=== PATIENT | female | born 1975 | race Hispanic/Latino ===

== ENCOUNTER 2016-12-04 23:57 | Emergency (ER) | payer SELFPAY ==
[2016-12-05 06:31] LABS: Urine Drugs of Abuse Note Disclamer
[2016-12-05 06:50] LABS: Bilirubin,Urine NEG (Negative); Blood,Urine NEG (Negative); Ketones,Urine TR mg/dL (Negative); Leukocyte Esterase,Urine SM (Negative); Mucus,Urine 2+ /HPF; Nitrite,Urine NEG (Negative); Protein,Urine <15 mg/dL mg/dL (Negative); Urobilinogen,Urine < 2.0 mg/dL (<2.0)
[2016-12-05] MEDS ORDERED: VALIUM PO ONE (07:43)
[2016-12-05] MEDS ORDERED: NORCO 5/325 PO ONE (07:43)
[2016-12-05 07:54] VITALS: BP 115/80
--- NOTE | 2016-12-05 07:58 | Emergency Department Report ---
HPI - General Chief Complaint: Extremity Problem,Nontraumatic Time Seen by Provider: 12/05/16 07:31 - HPI HPI: 41-year-old female presents today with left upper back pain radiating to her left arm and lower back pain x 2.5 weeks. Denies injury or trauma. Positive for history of similar symptoms. Patient states she has history of a pinched nerve and she used to follow-up with Dr. Walden who had her on Percocet. Patient tried BenGay, Flexeril, Toradol, tramadol, Advil without relief. Denies numbness, weakness, paresthesias. Denies bowel or bladder incontinence. Denies fever, chills, nausea, vomiting, chest pain, shortness of breath, abdominal pain, urinary symptoms, vaginal discharge or bleeding. ED Past Medical Hx - Past Medical History Previous Medical History?: Yes Additional medical history: polysubstance abuse - Surgical History Past Surgical History?: No - Social History Smoking Status: Never Smoker Substance Use Type: Alcohol - Medications Home Medications: Home Medications Medication Instructions Recorded Confirmed Last Taken Type ALPRAZolam [Xanax TAB] 2 mg PO TID PRN 09/25/16 09/25/16 Unknown History Nitrofurantoin Cotton/M-Cryst 100 mg PO Q12HR #10 capsule 12/05/16 Unknown Rx [Macrobid CAP] ED Review of Systems ROS: Stated complaint: BACK/LEFT SHOULDER PAIN Other details as noted in HPI Constitutional: denies: chills, fever, malaise Eyes: denies: eye pain ENT: denies: ear pain, throat pain, congestion Respiratory: denies: cough, shortness of breath, wheezing Cardiovascular: denies: chest pain, palpitations Endocrine: no symptoms reported Gastrointestinal: denies: abdominal pain, nausea, vomiting Musculoskeletal: back pain Neurological: denies: headache, weakness, numbness, paresthesias Physical Exam - Physical Exam Vital Signs: Vital Signs 12/05/16 01:45 Temperature 97.7 F Pulse Rate 82 Respiratory 18 Rate Blood Pressure 118/81 O2 Sat by Pulse 100 Oximetry Physical Exam: GENERAL: The patient is well-developed and well-nourished. Patient is in NAD. HEAD: Normocephalic. Atraumatic. NECK: No midline or paraspinal tenderness to palpation. Full range of motion. BACK: Full ROM. No midline tenderness. Bilateral paraspinal tenderness of lumbar region. Tenderness to palpation over left trapezius muscle group. No tenderness to palpation of sciatic notch bilaterally. Negative straight leg raise bilaterally. CHEST/LUNGS: Clear to auscultation throughout. HEART/CARDIOVASCULAR: Regular rate and rhythm. No murmurs, rubs or gallops. ABDOMEN: Abdomen is soft, nontender. No guarding or rebound tenderness. Negative for CVA tenderness bilaterally. EXTREMITIES: Full range of motion. Peripheral pulses intact. Capillary refill less than 2 seconds. NEURO: Alert and oriented x 3. Normal gait. ED Course Vital Signs 12/05/16 01:45 Temperature 97.7 F Pulse Rate 82 Respiratory 18 Rate Blood Pressure 118/81 O2 Sat by Pulse 100 Oximetry ED Medical Decision Making - Lab Data Vital Signs 12/05/16 12/05/16 01:45 07:53 Temperature 97.7 F Pulse Rate 82 69 Respiratory 18 20 Rate Blood Pressure 118/81 Blood Pressure 115/80 [Right] O2 Sat by Pulse 100 97 Oximetry Lab Results 12/05/16 12/05/16 Range/Units 06:22 06:22 Urine Color Yellow (Yellow) Urine Turbidity Clear (Clear) Urine pH 6.0 (5.0-7.0) Ur Specific Witt 1.024 (1.003-1.030) Urine Protein <15 mg/dl (Negative) mg/dL Urine Glucose (UA) Neg (Negative) mg/dL Urine Ketones Tr (Negative) mg/dL Urine Blood Neg (Negative) Urine Nitrite Neg (Negative) Urine Bilirubin Neg (Negative) Urine Urobilinogen < 2.0 (<2.0) mg/dL Ur Leukocyte Esterase Sm (Negative) Urine WBC (Auto) 17.0 H (0.0-6.0) /HPF Urine RBC (Auto) 7.0 (0.0-6.0) /HPF U Epithel Cells (Auto) 3.0 (0-13.0) /HPF Urine Mucus 2+ /HPF Urine Opiates Screen Presumptive negative Urine Methadone Screen Presumptive negative Ur Barbiturates Screen Presumptive negative Ur Phencyclidine Scrn Presumptive negative Ur Amphetamines Screen Presumptive negative U Benzodiazepines Scrn Presumptive positive Urine Cocaine Screen Presumptive negative U Marijuana (THC) Screen Presumptive positive Drugs of Abuse Note Disclamer - Medical Decision Making 41-year-old female presents today with acute onset of chronic upper and lower back pain 2.5 weeks. Her urinalysis reveals small leukocyte esterase. Patient was given Valium and [place] and reported symptomatic relief. Explained to patient that this is a chronic condition and she needs to follow up with orthopedics or her pain management. Patient expressed understanding. Patient is in no acute distress at this time. She will be discharged home and is encouraged to follow up with a primary care provider. Will be sent home on Macrobid and is encouraged to return to the emergency room for any worsening symptoms. Critical care attestation.: If time is entered above; I have spent that time in minutes in the direct care of this critically ill patient, excluding procedure time. ED Disposition Clinical Impression: Chronic back pain Qualifiers: Back pain location: low back pain Back pain laterality: bilateral Sciatica presence: without sciatica Qualified Code(s): M54.5 - Low back pain; G89.29 - Other chronic pain UTI (urinary tract infection) Qualifiers: Urinary tract infection type: acute cystitis Hematuria presence: without hematuria Qualified Code(s): N30.00 - Acute cystitis without hematuria Upper back strain Qualifiers: Encounter type: initial encounter Qualified Code(s): S29.012A - Strain of muscle and tendon of back wall of thorax, initial encounter Disposition: DISCHARGED TO HOME OR SELFCARE Is pt being admited?: No Does the pt Need Aspirin: No Condition: Undetermined Instructions: Muscle Strain (ED), Chronic Back Pain (ED), Urinary Tract Infection in Women (ED) Additional Instructions: Follow-up with orthopedic or pain management. Return to emergency department if symptoms worsen. Prescriptions: Nitrofurantoin Cotton/M-Cryst [Macrobid CAP] 100 mg PO Q12HR #10 capsule Referrals: [facility] [Provider Group] - 3-5 Days PRIMARY CAREMD [Primary Care Provider] - 3-5 Days ANDI RIOS MD [Staff Physician] - 3-5 Days [facility] [Outside] - 3-5 Days Forms: Work/School Release Form(ED), Accompanied Note Time of Disposition: 08:02
== END 2016-12-05 08:14 | disposition home or self-care (01) ==
LOC: ED 23:57
DX: S29.012A Strain of muscle and tendon of back wall of thorax, initial encounter (principal); M54.5 Low back pain; G89.29 Other chronic pain; N30.00 Acute cystitis without hematuria; X58.XXXA Exposure to other specified factors, initial encounter; Y93.89 Activity, other specified; Y99.9 Unspecified external cause status; Y92.89 Other specified places as the place of occurrence of the external cause
CPT/HCPCS: 80307; 81001; 99283

== ENCOUNTER 2017-02-01 04:48 | Emergency (ER) | payer SELFPAY ==
[2017-02-01 05:45] VITALS: BP 121/76
[2017-02-01] MEDS ORDERED: ZOFRAN ODT PO ONE (07:38)
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
== END 2017-02-01 08:00 | disposition left against medical advice (07) ==
LOC: ED 04:48
DX: M54.6 Pain in thoracic spine (principal); R11.0 Nausea
CPT/HCPCS: 99282; Q0162

== ENCOUNTER 2017-02-27 15:29 | Emergency (ER) | payer SELFPAY ==
[2017-02-27] MEDS ORDERED: ZOFRAN ONE (15:35)
[2017-02-27] MEDS ORDERED: NARCAN 0.4 MG/1 ML ONE (15:35)
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
[2017-02-27] MEDS ORDERED: NARCAN 0.4 MG/1 ML IV ONE (15:44)
--- NOTE | 2017-02-27 16:11 | Emergency Department Report ---
History of Present Illness - General Chief Complaint: Overdose Stated Complaint: OVERDOSE Time Seen by Provider: 02/27/17 15:43 Source: family Mode of arrival: Stretcher Limitations: Altered Mental Status - History of Present Illness Initial Comments: 41-year-old female with a past medical history polysubstance abuse including heroin presents to the hospital with potential heroin overdose. Patient is brought in by private vehicle by her boyfriend thinks she did overdose on heroin. Patient was found sitting up in a trunk and unconscious. Patient does wake up to intermittently answer questions but is drowsy and quickly falls back to sleep. No pain reported. Patient received Narcan 0.4 mg in the ED and admitted became more responsive, able to ambulate, respiratory rate improved. - Related Data Home Medications Medication Instructions Recorded Confirmed Last Taken No Known Home Medications [No 02/27/17 02/27/17 Unknown Reported Home Medications] Allergies Allergy/AdvReac Type Severity Reaction Status Date / Time codeine Allergy Rash Verified 12/05/16 01:56 cyclobenzaprine HCl Allergy Rash Verified 12/05/16 01:56 [From Flexeril] ketorolac tromethamine Allergy Rash Verified 12/05/16 01:56 [From Toradol] ED Review of Systems ROS: Stated complaint: OVERDOSE Other details as noted in HPI Comment: All other systems reviewed and negative Other: Obtained after patient received Narcan 0.4 mg and became more alert Constitutional: No fevers chills Eyes: No eye pain visual changes Neck: Denies pain Respiratory: Denies cough wheezing shortness of breath Cardiovascular: Denies chest pain, palpitations, syncope GI: Denies abdominal pain, nausea, vomiting, diarrhea : Denies dysuria Musculoskeletal: Complains of back pain Skin: Denies rash, lesions, erythema Neurologic: Denies headache, numbness, weakness Psychiatric: Denies suicidal ideation, hallucinations ED Past Medical Hx - Past Medical History Previous Medical History?: Yes Additional medical history: polysubstance abuse - Surgical History Past Surgical History?: Yes - Social History Smoking Status: Current Every Day Smoker Substance Use Type: Alcohol, Heroin, Marijuana - Medications Home Medications: Home Medications Medication Instructions Recorded Confirmed Last Taken Type No Known Home Medications [No 02/27/17 02/27/17 Unknown History Reported Home Medications] ED Physical Exam - General Limitations: Altered Mental Status - Other Other exam information: General: No limitations, patient is alert in no acute distress Head exam: Atraumatic, normocephalic Eyes exam: Normal appearance ENT: Moist mucous membrane, normal oropharynx Neck exam: Normal inspection, full range of motion Respiratory exam: Clear to auscultation bilateral, no wheezes, rales, crackles Cardiovascular: Normal rate and rhythm, normal heart sounds Abdomen: Soft, nondistended, and nontender, with normal bowel sounds, no rebound, or guarding Extremity: Full range of motion normal inspection no deformity Back: Normal Inspection, full range of motion, no tenderness Neurologic: Lethargic but arousable to tactile stimulation, slurred slow speech. After Narcan patient is alert and oriented 3, no motor or sensory deficit, gait steady, speech clear, cranial nerves grossly intact with no facial droop. Psychiatric: normal affect, normal mood Skin: Tract stock noted to hand ED Course Vital Signs 02/27/17 02/27/17 15:35 18:58 Temperature 96.0 F L Pulse Rate 104 H 89 Respiratory 8 L 16 Rate Blood Pressure 114/67 Blood Pressure 135/63 [Right] O2 Sat by Pulse 98 100 Oximetry - Reevaluation(s) Reevaluation #1: 02/27/17 16:11 Narcan 0.4 mg given after my evaluation with improvement in mental status and respiratory rate ED Medical Decision Making - Lab Data Result diagrams: 02/27/17 17:40 02/27/17 17:40 Lab Results 02/27/17 02/27/17 02/27/17 Range/Units 16:05 16:05 17:40 WBC 11.2 H (4.5-11.0) K/mm3 RBC 4.11 (3.65-5.03) M/mm3 Hgb 12.1 (10.1-14.3) gm/dl Hct 36.7 (30.3-42.9) % MCV 89 (79-97) fl MCH 29 (28-32) pg MCHC 33 (30-34) % RDW 14.9 (13.2-15.2) % Plt Count 241 (140-440) K/mm3 Lymph % (Auto) 18.8 (13.4-35.0) % Lyman % (Auto) 7.8 H (0.0-7.3) % Eos % (Auto) 0.2 (0.0-4.3) % Baso % (Auto) 1.9 H (0.0-1.8) % Lymph # 2.1 (1.2-5.4) K/mm3 Lyman # 0.9 H (0.0-0.8) K/mm3 Eos # 0.0 (0.0-0.4) K/mm3 Baso # 0.2 H (0.0-0.1) K/mm3 Seg Neutrophils % 71.3 H (40.0-70.0) % Seg Neutrophils # 8.0 H (1.8-7.7) K/mm3 Sodium (137-145) mmol/L Potassium (3.6-5.0) mmol/L Chloride (98-107) mmol/L Carbon Dioxide (22-30) mmol/L Anion Gap mmol/L BUN (7-17) mg/dL Creatinine (0.7-1.2) mg/dL Estimated GFR ml/min BUN/Creatinine Ratio % Glucose (65-100) mg/dL Calcium (8.4-10.2) mg/dL Total Bilirubin (0.1-1.2) mg/dL Direct Bilirubin (0-0.2) mg/dL Indirect Bilirubin mg/dL AST (5-40) units/L ALT (7-56) units/L Alkaline Phosphatase (35-129) units/L Total Creatine Kinase (30-135) units/L Total Protein (6.3-8.2) g/dL Albumin (3.9-5) g/dL Albumin/Globulin Ratio % HCG, Qual (Negative) Urine Color Yellow (Yellow) Urine Turbidity Cloudy (Clear) Urine pH 5.0 (5.0-7.0) Ur Specific Chappell 1.014 (1.003-1.030) Urine Protein <15 mg/dl (Negative) mg/dL Urine Glucose (UA) Neg (Negative) mg/dL Urine Ketones Neg (Negative) mg/dL Urine Blood Neg (Negative) Urine Nitrite Neg (Negative) Urine Bilirubin Neg (Negative) Urine Urobilinogen < 2.0 (<2.0) mg/dL Ur Leukocyte Esterase Neg (Negative) Urine WBC (Auto) 2.0 (0.0-6.0) /HPF Urine RBC (Auto) 4.0 (0.0-6.0) /HPF U Epithel Cells (Auto) 13.0 (0-13.0) /HPF Urine Mucus Few /HPF Urine HCG, Qual Negative (Negative) Salicylates (2.8-20.0) mg/dL Urine Methadone Screen Presumptive negative Acetaminophen (10.0-30.0) ug/mL Ur Barbiturates Screen Presumptive negative Ur Phencyclidine Scrn Presumptive negative Ur Amphetamines Screen Presumptive negative Urine Cocaine Screen Presumptive negative Plasma/Serum Alcohol (0-0.07) gm% 02/27/17 02/27/17 02/27/17 Range/Units 17:40 17:40 17:40 WBC (4.5-11.0) K/mm3 RBC (3.65-5.03) M/mm3 Hgb (10.1-14.3) gm/dl Hct (30.3-42.9) % MCV (79-97) fl MCH (28-32) pg MCHC (30-34) % RDW (13.2-15.2) % Plt Count (140-440) K/mm3 Lymph % (Auto) (13.4-35.0) % Lyman % (Auto) (0.0-7.3) % Eos % (Auto) (0.0-4.3) % Baso % (Auto) (0.0-1.8) % Lymph # (1.2-5.4) K/mm3 Lyman # (0.0-0.8) K/mm3 Eos # (0.0-0.4) K/mm3 Baso # (0.0-0.1) K/mm3 Seg Neutrophils % (40.0-70.0) % Seg Neutrophils # (1.8-7.7) K/mm3 Sodium 136 L (137-145) mmol/L Potassium 4.1 (3.6-5.0) mmol/L Chloride 100.4 (98-107) mmol/L Carbon Dioxide 25 (22-30) mmol/L Anion Gap 15 mmol/L BUN 8 (7-17) mg/dL Creatinine 0.5 L (0.7-1.2) mg/dL Estimated GFR > 60 ml/min BUN/Creatinine Ratio 16.00 % Glucose 100 (65-100) mg/dL Calcium 8.5 (8.4-10.2) mg/dL Total Bilirubin (0.1-1.2) mg/dL Direct Bilirubin (0-0.2) mg/dL Indirect Bilirubin mg/dL AST (5-40) units/L ALT (7-56) units/L Alkaline Phosphatase (35-129) units/L Total Creatine Kinase (30-135) units/L Total Protein (6.3-8.2) g/dL Albumin (3.9-5) g/dL Albumin/Globulin Ratio % HCG, Qual (Negative) Urine Color (Yellow) Urine Turbidity (Clear) Urine pH (5.0-7.0) Ur Specific Chappell (1.003-1.030) Urine Protein (Negative) mg/dL Urine Glucose (UA) (Negative) mg/dL Urine Ketones (Negative) mg/dL Urine Blood (Negative) Urine Nitrite (Negative) Urine Bilirubin (Negative) Urine Urobilinogen (<2.0) mg/dL Ur Leukocyte Esterase (Negative) Urine WBC (Auto) (0.0-6.0) /HPF Urine RBC (Auto) (0.0-6.0) /HPF U Epithel Cells (Auto) (0-13.0) /HPF Urine Mucus /HPF Urine HCG, Qual (Negative) Salicylates < 0.3 L (2.8-20.0) mg/dL Urine Methadone Screen Acetaminophen < 15.0 (10.0-30.0) ug/mL Ur Barbiturates Screen Ur Phencyclidine Scrn Ur Amphetamines Screen Urine Cocaine Screen Plasma/Serum Alcohol (0-0.07) gm% 02/27/17 02/27/17 02/27/17 Range/Units 17:40 17:40 17:40 WBC (4.5-11.0) K/mm3 RBC (3.65-5.03) M/mm3 Hgb (10.1-14.3) gm/dl Hct (30.3-42.9) % MCV (79-97) fl MCH (28-32) pg MCHC (30-34) % RDW (13.2-15.2) % Plt Count (140-440) K/mm3 Lymph % (Auto) (13.4-35.0) % Lyman % (Auto) (0.0-7.3) % Eos % (Auto) (0.0-4.3) % Baso % (Auto) (0.0-1.8) % Lymph # (1.2-5.4) K/mm3 Lyman # (0.0-0.8) K/mm3 Eos # (0.0-0.4) K/mm3 Baso # (0.0-0.1) K/mm3 Seg Neutrophils % (40.0-70.0) % Seg Neutrophils # (1.8-7.7) K/mm3 Sodium (137-145) mmol/L Potassium (3.6-5.0) mmol/L Chloride (98-107) mmol/L Carbon Dioxide (22-30) mmol/L Anion Gap mmol/L BUN (7-17) mg/dL Creatinine (0.7-1.2) mg/dL Estimated GFR ml/min BUN/Creatinine Ratio % Glucose (65-100) mg/dL Calcium (8.4-10.2) mg/dL Total Bilirubin 0.2 (0.1-1.2) mg/dL Direct Bilirubin < 0.2 (0-0.2) mg/dL Indirect Bilirubin 0.0 mg/dL AST 22 (5-40) units/L ALT 19 (7-56) units/L Alkaline Phosphatase 74 (35-129) units/L Total Creatine Kinase (30-135) units/L Total Protein 6.6 (6.3-8.2) g/dL Albumin 3.5 L (3.9-5) g/dL Albumin/Globulin Ratio 1.1 % HCG, Qual Negative (Negative) Urine Color (Yellow) Urine Turbidity (Clear) Urine pH (5.0-7.0) Ur Specific Chappell (1.003-1.030) Urine Protein (Negative) mg/dL Urine Glucose (UA) (Negative) mg/dL Urine Ketones (Negative) mg/dL Urine Blood (Negative) Urine Nitrite (Negative) Urine Bilirubin (Negative) Urine Urobilinogen (<2.0) mg/dL Ur Leukocyte Esterase (Negative) Urine WBC (Auto) (0.0-6.0) /HPF Urine RBC (Auto) (0.0-6.0) /HPF U Epithel Cells (Auto) (0-13.0) /HPF Urine Mucus /HPF Urine HCG, Qual (Negative) Salicylates (2.8-20.0) mg/dL Urine Methadone Screen Acetaminophen (10.0-30.0) ug/mL Ur Barbiturates Screen Ur Phencyclidine Scrn Ur Amphetamines Screen Urine Cocaine Screen Plasma/Serum Alcohol < 0.01 (0-0.07) gm% 02/27/17 Range/Units 17:40 WBC (4.5-11.0) K/mm3 RBC (3.65-5.03) M/mm3 Hgb (10.1-14.3) gm/dl Hct (30.3-42.9) % MCV (79-97) fl MCH (28-32) pg MCHC (30-34) % RDW (13.2-15.2) % Plt Count (140-440) K/mm3 Lymph % (Auto) (13.4-35.0) % Lyman % (Auto) (0.0-7.3) % Eos % (Auto) (0.0-4.3) % Baso % (Auto) (0.0-1.8) % Lymph # (1.2-5.4) K/mm3 Lyman # (0.0-0.8) K/mm3 Eos # (0.0-0.4) K/mm3 Baso # (0.0-0.1) K/mm3 Seg Neutrophils % (40.0-70.0) % Seg Neutrophils # (1.8-7.7) K/mm3 Sodium (137-145) mmol/L Potassium (3.6-5.0) mmol/L Chloride (98-107) mmol/L Carbon Dioxide (22-30) mmol/L Anion Gap mmol/L BUN (7-17) mg/dL Creatinine (0.7-1.2) mg/dL Estimated GFR ml/min BUN/Creatinine Ratio % Glucose (65-100) mg/dL Calcium (8.4-10.2) mg/dL Total Bilirubin (0.1-1.2) mg/dL Direct Bilirubin (0-0.2) mg/dL Indirect Bilirubin mg/dL AST (5-40) units/L ALT (7-56) units/L Alkaline Phosphatase (35-129) units/L Total Creatine Kinase 85 (30-135) units/L Total Protein (6.3-8.2) g/dL Albumin (3.9-5) g/dL Albumin/Globulin Ratio % HCG, Qual (Negative) Urine Color (Yellow) Urine Turbidity (Clear) Urine pH (5.0-7.0) Ur Specific Chappell (1.003-1.030) Urine Protein (Negative) mg/dL Urine Glucose (UA) (Negative) mg/dL Urine Ketones (Negative) mg/dL Urine Blood (Negative) Urine Nitrite (Negative) Urine Bilirubin (Negative) Urine Urobilinogen (<2.0) mg/dL Ur Leukocyte Esterase (Negative) Urine WBC (Auto) (0.0-6.0) /HPF Urine RBC (Auto) (0.0-6.0) /HPF U Epithel Cells (Auto) (0-13.0) /HPF Urine Mucus /HPF Urine HCG, Qual (Negative) Salicylates (2.8-20.0) mg/dL Urine Methadone Screen Acetaminophen (10.0-30.0) ug/mL Ur Barbiturates Screen Ur Phencyclidine Scrn Ur Amphetamines Screen Urine Cocaine Screen Plasma/Serum Alcohol (0-0.07) gm% - Medical Decision Making pt is up and ready to go. she is accidental narcotic overdose with chronic use/ abuse issues. EKG was not obtained as originally ordered but at this time since patient is alert and awake and wanting to go it was not done. Patient does not want any further studies at this time. Repeat vital signs shows improvement. Patient has been alert for several hours after Narcan. Patient is requesting pain medication for her chronic back pain. She was told she would not be receiving pain medication here or additional discharge narcotics given recent overdose. She will be discharged home. vs improve. Pt did not want to wait for d/c paper work. Boyfriend in ed to take her home - Differential Diagnosis accidental overdose, suicidal ideation, drug abuse Critical Care Time: No Critical care attestation.: If time is entered above; I have spent that time in minutes in the direct care of this critically ill patient, excluding procedure time. ED Disposition Clinical Impression: Narcotic overdose, Chronic pain Disposition: DISCHARGED TO HOME OR SELFCARE Is pt being admited?: No Does the pt Need Aspirin: No Condition: Stable Instructions: Chronic Pain (ED), Narcotic Abuse (ED) Additional Instructions: Only taking your medication as prescribed. DO NOT TAKE EXTRA PAIN PILL OR USE HEROIN OR OTHER DRUGS. With the primary care doctor in the clinic provided. Return if symptoms worsen. Referrals: PRIMARY [facility] [Primary Care Provider] - 3-5 Days [facility] [Outside] - 3-5 Days [facility] [Other] - 3-5 Days [facility] [Provider Group] - 3-5 Days Time of Disposition: 18:51 (pt decline d/c paperwork)
[2017-02-27] MEDS ORDERED: ZOFRAN IV ONE (16:46)
[2017-02-27 17:29] LABS: Bilirubin,Urine NEG (Negative); Blood,Urine NEG (Negative); Ketones,Urine NEG (Negative); Leukocyte Esterase,Urine NEG (Negative); Mucus,Urine FEW /HPF; Nitrite,Urine NEG (Negative); Protein,Urine <15 mg/dL mg/dL (Negative); Urobilinogen,Urine < 2.0 mg/dL (<2.0)
[2017-02-27 17:53] LABS: Basophils % (Auto) 1.9 % (0.0-1.8); Eosinophils % (Auto) 0.2 % (0.0-4.3); Hematocrit 36.7 % (30.3-42.9); Hemoglobin 12.1 gm/dl (10.1-14.3); Mean Corpuscular HGB Conc 33 % (30-34); Mean Corpuscular Hemoglobin 29 pg (28-32); Mean Corpuscular Volume 89 fl (79-97); Platelet Count 241 K/mm3 (140-440); Red Blood Count 4.11 M/mm3 (3.65-5.03); Red Cell Distribution Width 14.9 % (13.2-15.2); White Blood Count 11.2 K/mm3 (4.5-11.0)
[2017-02-27 18:07] LABS: Anion Gap 15 mmol/L; Blood Urea Nitrogen 8 mg/dL (7-17); Calcium 8.5 mg/dL (8.4-10.2); Carbon Dioxide 25 mmol/L (22-30); Chloride 100.4 mmol/L (98-107); Glucose 100 mg/dL (65-100); Potassium 4.1 mmol/L (3.6-5.0); Sodium 136 mmol/L (137-145)
[2017-02-27 18:17] LABS: Alanine Aminotransferase 19 units/L (7-56); Albumin 3.5 g/dL (3.9-5); Albumin/Globulin Ratio 1.1 %; Alkaline Phosphatase 74 units/L (35-129); Bilirubin,Total 0.2 mg/dL (0.1-1.2); Total Protein 6.6 g/dL (6.3-8.2)
[2017-02-27 18:24] LABS: Urine Drugs of Abuse Note Disclamer
[2017-02-27 18:28] LABS: Bilirubin,Direct < 0.2 mg/dL (0-0.2)
[2017-02-27 18:59] VITALS: BP 135/63
--- NOTE | 2017-02-28 10:41 | XRay Report ---
CHEST ONE VIEW INDICATION: Overdose. COMPARISON: None similar at this institution. FINDINGS: Portable, single, frontal chest radiograph demonstrates normal cardiomediastinal silhouette. Clear lungs. Intact bones. CONCLUSION: No acute disease in the chest. Thank you for the opportunity to participate in this patient's care.
== END 2017-02-27 19:21 | disposition home or self-care (01) ==
LOC: ED 15:29
DX: T40.601A Poisoning by unspecified narcotics, accidental (unintentional), initial encounter (principal); G89.29 Other chronic pain; F17.200 Nicotine dependence, unspecified, uncomplicated; F12.10 Cannabis abuse, uncomplicated; F11.10 Opioid abuse, uncomplicated; Z88.5 Allergy status to narcotic agent; Z88.8 Allergy status to other drugs, medicaments and biological substances; Y92.89 Other specified places as the place of occurrence of the external cause
CPT/HCPCS: 36415; 71010; 80048; 80074; 80307; 81001; 81025; 82550; 84703; 85025; 96374; 96375; 99284; G0480; J2310; J2405; 80320

== ENCOUNTER 2017-04-04 22:27 | Emergency (ER) | payer SELFPAY ==
[2017-04-04 23:42] VITALS: BP 123/83
--- NOTE | 2017-04-05 08:40 | XRay Report ---
Left humerus: Evaluation for foreign body. Routine imaging demonstrates 2 segments of a metallic needle by approximately 2.8 cm in the lateral soft tissues adjacent to the proximal shaft. The remaining soft tissue and bony findings are unremarkable. Impression: Foreign body.
== END 2017-04-04 23:55 | disposition left against medical advice (07) ==
LOC: ED 22:27
DX: S49.82XA Other specified injuries of left shoulder and upper arm, initial encounter (principal); X58.XXXA Exposure to other specified factors, initial encounter; Y93.89 Activity, other specified; Y99.8 Other external cause status; Y92.89 Other specified places as the place of occurrence of the external cause; Z53.21 Procedure and treatment not carried out due to patient leaving prior to being seen by health care provider
CPT/HCPCS: 82962

== ENCOUNTER 2017-04-05 10:02 | Emergency (ER) | payer SELFPAY ==
[2017-04-05 10:27] VITALS: BP 117/85
--- NOTE | 2017-04-05 10:59 | Emergency Department Report ---
- General Chief complaint: Skin/Abscess/Foreign Body Stated complaint: NEEDLE STUCK IN ARM Time Seen by Provider: 04/05/17 10:43 Source: patient, family (significant other) Mode of arrival: Ambulatory Limitations: No Limitations - History of Present Illness Initial comments: Patient here reported that she stuck a hypodermic needle in both arms at her deltoid muscle. Says that she was given her insulin shot and the needle broke off times. Reports that she is here to have needs removed from her arms. Denies any nausea vomiting. Denies any fever or chills. He denies any redness or drainage from site. complaint: foreign body Onset/Timin Tetanus Up to Date: yes Location: [facility] Severity scale (0 -10): 0 Context: other (patient reports that she was given insulin and the needle broke off in her arm) Associated symptoms: denies other symptoms Treatments Prior to Arrival: none - Related Data Previous Rx's Medication Instructions Recorded Last Taken Type Cephalexin [Keflex] 500 mg PO Q8HR #21 cap 04/05/17 Unknown Rx Allergies Allergy/AdvReac Type Severity Reaction Status Date / Time codeine Allergy Rash Verified 12/05/16 01:56 cyclobenzaprine HCl Allergy Rash Verified 12/05/16 01:56 [From Flexeril] ketorolac tromethamine Allergy Rash Verified 12/05/16 01:56 [From Toradol] Abscess Boil HPI - HPI Chief Complaint: Skin/Abscess/Foreign Body Stated Complaint: NEEDLE STUCK IN ARM Time Seen by Provider: 04/05/17 10:43 Home Medications: Previous Rx's Medication Instructions Recorded Last Taken Type Cephalexin [Keflex] 500 mg PO Q8HR #21 cap 04/05/17 Unknown Rx Allergies/Adverse Reactions: Allergies Allergy/AdvReac Type Severity Reaction Status Date / Time codeine Allergy Rash Verified 12/05/16 01:56 cyclobenzaprine HCl Allergy Rash Verified 12/05/16 01:56 [From Flexeril] ketorolac tromethamine Allergy Rash Verified 12/05/16 01:56 [From Toradol] ED Review of Systems ROS: Stated complaint: NEEDLE STUCK IN ARM Other details as noted in HPI Comment: All other systems reviewed and negative Constitutional: denies: chills, fever Respiratory: no symptoms reported Cardiovascular: denies: chest pain, palpitations, edema, syncope Gastrointestinal: denies: abdominal pain, nausea, vomiting, diarrhea Musculoskeletal: arthralgia, myalgia. denies: back pain, joint swelling Skin: other (foreign body in both arms) Neurological: denies: headache, numbness, paresthesias, confusion ED Past Medical Hx - Past Medical History Previous Medical History?: Yes Hx Diabetes: Yes Additional medical history: polysubstance abuse - Surgical History Past Surgical History?: No - Family History Family history: no significant - Social History Smoking Status: Current Every Day Smoker Substance Use Type: None - Medications Home Medications: Home Medications Medication Instructions Recorded Confirmed Last Taken Type Cephalexin [Keflex] 500 mg PO Q8HR #21 cap 04/05/17 Unknown Rx ED Physical Exam - General Limitations: No Limitations General appearance: alert, in no apparent distress - Head Head exam: Present: atraumatic, normocephalic, normal inspection - Eye Eye exam: Present: normal appearance, PERRL, EOMI Pupils: Present: normal accommodation - Neck Neck exam: Present: normal inspection, full ROM. Absent: tenderness, lymphadenopathy - Respiratory Respiratory exam: Present: normal lung sounds bilaterally. Absent: respiratory distress, chest wall tenderness - Cardiovascular Cardiovascular Exam: Present: regular rate, normal rhythm, normal heart sounds - Expanded Upper Extremity Exam Left General: Present: normal inspection. Absent: laceration, abrasion, nail injury (#), foreign body, amputation, avulsion Shoulder Exam: Present: normal inspection, full ROM. Absent: tenderness, swelling, abrasion, laceration, ecchymosis, deformity, crepidus, dislocation, erythema, tenderness over AC joint Upper Arm exam: Present: full ROM, tenderness, other (noted.-sized hole to left deltoid area no foreign body felt or seen.). Absent: swelling, abrasion, laceration, ecchymosis, deformity Elbow exam: Present: normal inspection. Absent: full ROM, tenderness, swelling , abrasion, laceration, ecchymosis, deformity, crepidus, dislocation, erythema, effusion, pain w/ pronation/supination, tenderness over radial head Forearm Wrist exam: Present: normal inspection, full ROM. Absent: tenderness, swelling, abrasion, laceration, ecchymosis, deformity, crepidus, dislocation, erythema, tenderness over anatomical snuff box, pain with axial thumb loading Hand Wrist exam: Present: normal inspection, full ROM. Absent: tenderness, swelling, abrasion, laceration, ecchymosis, deformity, crepidus, dislocation, erythema, amputation, nail avulsion, subungual hematoma Neuro motor exam: Present: wrist extension intact, thumb opposition intact, thumb IP flexion intact, thumb adduction intact, fingers 2-5 abduction intact Neurosensory exam: Present: 2-point discrimination, radial nerve intact, ulnar nerve intact, median nerve intact Vascular: Present: normal capillary refill, radial pulse, brachial pulse, ulnar pulse. Absent: vascular compromise, Pallo, pulse deficit radial art, pulse deficit ulnar art, pulse deficit brachial art Right General: Absent: laceration, abrasion, nail injury (#), foreign body, amputation , avulsion Shoulder Exam: Present: normal inspection, full ROM. Absent: tenderness, swelling, abrasion, laceration, ecchymosis, deformity, crepidus, dislocation, erythema, tenderness over AC joint Upper Arm exam: Present: full ROM, other ( Pin size hole noted on the right arm deltoid area..). Absent: normal inspection, tenderness, swelling, ecchymosis, deformity Elbow exam: Present: normal inspection, full ROM. Absent: tenderness, swelling , abrasion, laceration, ecchymosis, deformity, crepidus, dislocation, erythema, effusion, pain w/ pronation/supination, tenderness over radial head Forearm Wrist exam: Present: normal inspection, full ROM. Absent: tenderness, swelling, abrasion, laceration, ecchymosis, deformity, crepidus, dislocation, erythema, tenderness over anatomical snuff box, pain with axial thumb loading Hand Wrist exam: Present: normal inspection, full ROM. Absent: tenderness, swelling, abrasion, laceration, deformity, crepidus, dislocation, erythema, amputation, nail avulsion, subungual hematoma Neuro motor exam: Present: wrist extension intact, thumb opposition intact, thumb IP flexion intact, thumb adduction intact, fingers 2-5 abduction intact Neurosensory exam: Present: 2-point discrimination, radial nerve intact, ulnar nerve intact, median nerve intact Vascular: Present: normal capillary refill, radial pulse, brachial pulse, ulnar pulse. Absent: vascular compromise, Pallo, pulse deficit radial art, pulse deficit ulnar art, pulse deficit brachial art - Back Exam Back exam: Present: normal inspection, full ROM. Absent: tenderness, CVA tenderness (R), CVA tenderness (L), muscle spasm, paraspinal tenderness, vertebral tenderness, rash noted - Neurological Exam Neurological exam: Present: alert, oriented X3, normal gait, reflexes normal. Absent: motor sensory deficit - Psychiatric Psychiatric exam: Present: normal affect, normal mood - Skin Skin exam: Present: warm, dry, intact. Absent: rash, erythema ED Course Vital Signs 04/05/17 10:22 Temperature 98.4 F Pulse Rate 86 Respiratory 16 Rate Blood Pressure 117/85 O2 Sat by Pulse 100 Oximetry - Reevaluation(s) Reevaluation #1: 04/05/17 13:08 Patient is stable at present and sleeping with her significant other at bedside . Discussed with them I called Dr. Jain who is surgeon and he will be consulting with them in 1-2 hours. - Consultations Consultation #1: 04/05/17 13:09 Dr Jain ED Medical Decision Making - Radiology Data Radiology results: report reviewed X-ray of bilateral humerus revealed left humerus with 2 segments of the metallic needle by approximately 2.8 cm in the lateral soft tissue adjacent to the proximal shaft. X-ray of right humerus reveal a linear metallic density consistent with a needle point is identified within the deltoid muscle. The bony humerus is normal. - Medical Decision Making ED course: I explained to patient that she will need to follow-up with a surgeon was for spoke with on the following and reported the patient in follow-up in his office on Saturday outpatient. I explained to her that the needle was embedded in her soft tissue and it's not superficial laceration I removed from emergency room. She was understanding and I told her to follow up with Dr. Jain his number is in her discharge instruction paperwork. I also gave her x-ray report and told her that there was foreign bodies seen in both arms. Condition discharged home in stable condition with her significant other. Patient given prescription for Keflex empirically to prevent infection. Critical care attestation.: If time is entered above; I have spent that time in minutes in the direct care of this critically ill patient, excluding procedure time. ED Disposition Clinical Impression: Metal foreign body in upper extremity Qualifiers: Encounter type: initial encounter Laterality: unspecified laterality Qualified Code(s): S40.856D - Superficial foreign body of unspecified upper arm, initial encounter Disposition: DISCHARGED TO HOME OR SELFCARE Is pt being admited?: No Does the pt Need Aspirin: No Condition: Stable Instructions: Soft Tissue Foreign Body (ED) Additional Instructions: Please follow up with Dr. Jain is a surgeon will be evaluated for foreign body removal from arms. Keep affected area clean and dry. Prescriptions: Cephalexin [Keflex] 500 mg PO Q8HR #21 cap Referrals: SHER JAIN MD [Staff Physician] - 04/08/17 [facility] [Outside] - 3-5 Days Forms: Accompanied Note
--- NOTE | 2017-04-05 12:00 | XRay Report ---
RIGHT HUMERUS: History: Foreign body, pain. A linear metallic density consistent with a needle point is identified within the deltoid muscle. Please correlate with the image. The bony humerus is normal. IMPRESSION: Foreign body consistent with a needle tip as described.
== END 2017-04-05 14:24 | disposition home or self-care (01) ==
LOC: ED 10:02
DX: S40.852A Superficial foreign body of left upper arm, initial encounter (principal); S40.851A Superficial foreign body of right upper arm, initial encounter; E11.9 Type 2 diabetes mellitus without complications; F17.200 Nicotine dependence, unspecified, uncomplicated; Z88.8 Allergy status to other drugs, medicaments and biological substances; W22.8XXA Striking against or struck by other objects, initial encounter; Y93.89 Activity, other specified; Y99.8 Other external cause status; Y92.89 Other specified places as the place of occurrence of the external cause